=== PATIENT | female | born 1985 | race African-American/Black ===

== ENCOUNTER 2017-06-06 09:15 | Emergency (ER) | payer OTHER ==
[~2017-06-06] VITALS: Ht 165.1 cm; Wt 79.4 kg
[~2017-06-06 09:15] MED LIST: ONDANSETRON HCL4 M2 PO; PREDNISONE 20 M20 MG PO; PREDNISONE 5 MG5 M1 PO; VISTARIL 25 MG25 M1 PO; ZANTAC 150MG T150 MG PO
[2017-06-06 09:55] LABS: URINE BILIRUBIN NEGATIVE (Negative); URINE BLOOD NEGATIVE (Negative); URINE CLARITY CLEAR; URINE COLOR YELLOW; URINE GLUCOSE-RANDOM* NEGATIVE (Negative); URINE KETONES NEGATIVE (Negative); URINE LEUKOCYTES NEGATIVE (Negative); URINE NITRITE NEGATIVE (Negative); URINE PROTEIN (DIPSTICK) NEGATIVE (Negative)
[2017-06-06] MEDS ORDERED: IBUPROFEN 600600 M1 PO (10:11)
== END 2017-06-06 10:21 | disposition home or self-care (01) ==
LOC: ER 09:15
PROVIDERS: Nurse Practitioner
DX: R10.2 Pelvic and perineal pain (principal); T83.32XA Displacement of intrauterine contraceptive device, initial encounter; F17.210 Nicotine dependence, cigarettes, uncomplicated; Y84.9 Medical procedure, unspecified as the cause of abnormal reaction of the patient, or of later complication, without mention of misadventure at the time of the procedure; Y92.89 Other specified places as the place of occurrence of the external cause

== ENCOUNTER 2017-07-08 10:04 | Emergency (ER) | payer OTHER ==
[~2017-07-08] VITALS: Ht 167.6 cm; Wt 81.7 kg
[~2017-07-08 10:04] MED LIST changes: +IBUPROFEN 600600 M1 PO
[2017-07-08] MEDS ORDERED: MEDROLDOSEPACK PO (10:42)
[2017-07-08] MEDS ORDERED: HYDROXYZINE HCL25 M1 PO (10:42)
[2017-07-08 11:17] VITALS: BP 121/76
== END 2017-07-08 11:18 | disposition home or self-care (01) ==
LOC: ER 10:04
DX: T78.40XA Allergy, unspecified, initial encounter (principal); X58.XXXA Exposure to other specified factors, initial encounter; F17.210 Nicotine dependence, cigarettes, uncomplicated